=== PATIENT | male | born 1970 | race Caucasian/White ===

== ENCOUNTER 2023-08-07 06:37 | Day surgery (SDC) | payer OTHER ==
[~2023-08-07] VITALS: Ht 175.3 cm; Wt 179.2 kg
[2023-08-07] MEDS ORDERED: MIDAZOLAM 5 MG/5 ML VIAL ONE (07:28)
[2023-08-07] MEDS ORDERED: LIDOCAINE 2% 100 MG/5 ML UJET TP ONE (07:28)
[2023-08-07] MEDS ORDERED: fentaNYL citrate 0.05 MG/ML VIAL ONE (07:28)
[2023-08-07] MEDS ORDERED: diphenhydrAMINE 50 MG/ML VIAL ONE (07:28)
[2023-08-07] MEDS ORDERED: fentaNYL citrate 0.05 MG/ML VIAL IVP ONE ×2 (14:25→16:00)
[2023-08-07] MEDS ORDERED: MIDAZOLAM 5 MG/5 ML VIAL IV ONE (14:40)
== END 2023-08-07 09:05 | disposition home or self-care (01) ==
LOC: MMU 06:37 → MDS 06:37
PROVIDERS: ATTEND Internal Medicine Gastroenterology
DX: K62.5 Hemorrhage of anus and rectum (principal); D12.5 Benign neoplasm of sigmoid colon; Z80.0 Family history of malignant neoplasm of digestive organs; F32.A Depression, unspecified; E66.9 Obesity, unspecified; Z98.84 Bariatric surgery status; Z88.8 Allergy status to other drugs, medicaments and biological substances; Z68.43 Body mass index [BMI] 50.0-59.9, adult
CPT/HCPCS: 45385; J1200; J2250; J3010